=== PATIENT | male | born 1965 | race Caucasian/White ===

== ENCOUNTER 2017-05-20 15:22 | Inpatient (IN) | payer OTHER ==
[~2017-05-20] VITALS: Ht 188 cm; Wt 126.5 kg
--- NOTE | ~2017-05-20 | 2DMMODE ---
[facility] [place] [facility]by [facility] [place] [address] 2 D/M-MODE ECHOCARDIOGRAM Name: AAKASH SCHMITZ Room #: 209-P [facility] IN [facility].#: [id number] Admission: 05/20/17 Attend Phys: Rosendo Lepe MD Discharge: 05/25/17 Date of : 63 Date of Service: 05/21/17 1021 Report #: [id number] THIS REPORT FOR: //name// Study performed: 05/21/2017 10:05:57 EXAM: Comprehensive 2D, Doppler, and color-flow Echocardiogram Patient Location: Bedside Room #: 209 Status: routine BSA: 2.48 HR: 90 bpm BP: 160/86 mmHg Other Information Study Quality: Adequate Indications COPD Diabetes Cardiomyopathy Hypertension/HDD 2D Dimensions RVDd: 32.49 mm LVEF(%): 34.98 (>50%) IVSd: 8.90 (7~11mm) LVOT Diam: 23.28 (18~24mm) LVDd: 48.91 mm PWd: 9.26 (7~11mm) Ascending Ao: 26.11 (22~36mm) LVDs: 40.72 (25~40mm) Aortic Root: 28.80 mm IVC: 17.00 mm Marte's LVEF: 34.98 % Volumes Left Atrial Volume (Systole) Single Plane 4CH: 31.98 mL Single Plane 2CH: 32.94 mL LA ESV Index: 15.00 mL/m2 Aortic Valve AoV Peak Yvon.: 1.46 m/s AO Peak Gr.: 8.49 mmHg LVOT Max P.99 mmHg LVOT Max V: 1.00 m/s DARBY Vmax: 2.92 cm2 Mitral Valve E/A Ratio: 0.7 MV Decel. Time: 232.16 ms MV E Max Yvon.: 0.84 m/s MV A Yvon.: 1.13 m/s MV PHT: 67.[address] [facility] [place] [place] [address] 2 D/M-MODE ECHOCARDIOGRAM Name: AAKASH SCHMITZ Room #: 209-P [facility] IN ..#: [id number] Admission: 05/20/17 Attend Phys: Rosendo Lepe MD Discharge: 05/25/17 Date of : 63 Date of Service: 05/21/17 1021 Report #: [id number] IVRT: 107.27 ms Pulmonary Valve PV Peak Yvon.: 1.09 m/s PV Peak Gr.: 4.71 mmHg Pulmonary Vein P Vein S: 0.36 m/s P Vein A: 0.29 m/s P Vein D: 0.30 m/s P Vein A Dur.: 103.8 msec P Vein S/D Ratio: 1.20 Left Ventricle The left ventricle is normal size. There is normal left ventricular wall borderline incr thickness Left ventricular ejection fraction is moderately decreased. LVEF is 35%. Grade I - abnormal relaxation pattern. Right Ventricle The right ventricle is normal size. The right ventricular systolic function is normal. Atria The left atrium size is normal. The right atrium size is normal. Aortic Valve The aortic valve is normal in structure. No aortic regurgitation is present. There is no aortic valvular stenosis. Mitral Valve The mitral valve is normal in structure. There is no mitral valve regurgitation noted. No evidence of mitral valve stenosis. Tricuspid Valve The tricuspid valve is normal in structure. There is no tricuspid valve regurgitation noted. Pulmonic Valve The pulmonary valve is normal in structure. There is no pulmonic valvular regurgitation. Great Vessels The aortic root is normal in size. IVC is normal in size and collapses >50% with inspiration. Pericardium There is no pericardial effusion. <Conclusion> [facility] [place] [place] [address] [place] [address] 2 D/M-MODE ECHOCARDIOGRAM Name: NAYANDANIELLEOMIAAKASH Shara Room #: 209-P [facility]#: [id number] Admission: 05/20/17 Attend Phys: Rosendo Lepe MD Discharge: 05/25/17 Date of : 63 Date of Service: 05/21/17 1021 Report #: [id number] The left ventricle is normal size. There is normal left ventricular wall borderline incr thickness Left ventricular ejection fraction is moderately decreased. LVEF is 35%. Grade I - abnormal relaxation pattern. The right ventricle is normal size. The left atrium size is normal. There is no aortic valvular stenosis. There is no mitral valve regurgitation noted. There is no tricuspid valve regurgitation noted. The aortic root is normal in size. There is no pericardial effusion. <ELECTRONICALLY SIGNED> By: Ludin Lo MD, FACC 06/04/17 0800 1021 T: Ludin Lo MD, FACC /HY
--- NOTE | ~2017-05-20 | EKG ---
[address] [address] ELECTROCARDIOGRAM REPORT Name: AAKASH SCHMITZ Shara Room #: 209-P ADM IN M.R.#: [id number] Admission: 05/20/17 Attend Phys: Rosendo Lepe MD Discharge: Date of : 63 Report #: [id number] THIS REPORT FOR: //name// [facility] Test Date: 2017-05-21 Test Time: 17:33:42 Pat Name: AAKASH SCHMITZ Department: Room: 209 P Gender: M Marine Cargo Inspector: Doreen SHEEHAN : 1965 Requested By: Rita Godfrey Order Number: [id number] MD: Kermit Thomas Measurements Intervals [place] Rate: 126 P: -8 [place]: 126 QRS: 101 QRSD: 100 T: 34 QT: 317 QTc: 459 Interpretive Statements Sinus tachycardia Left posterior fascicular block Compared to ECG 05/21/2017 08:58:18 Heart rate has increased Electronically Signed On 05-23-2017 14:03:42 HORSE IDENTIFIER by Kermit Thomas [email or web address] <ELECTRONICALLY SIGNED> By: Kermit Thomas MD, [facility] 05/23/17 1403 1733 173 Kermit Thomas MD, [facility] /EPI
--- NOTE | ~2017-05-20 | HC ---
[facility] [place] [address] CONSULTATION Name: AAKASH SCHMITZ Room #: 209-P [facility] IN ..#: [id number] Admission: 05/20/17 Attend Phys: Rosendo Lepe MD Discharge: 05/25/17 Date of : 63 Report #: [id number] THIS REPORT FOR: //name// CC: Rosendo Turner DATE OF SERVICE: 05/21/2017 ATTENDING PHYSICIAN: Jasson Mayo DO REASON FOR CONSULTATION: Chronic kidney disease. HISTORY OF PRESENT ILLNESS: A 52-year-old patient with longstanding poorly controlled diabetes, well known triopathy including renal disease, sees Dr. 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 He has a chronic creatinine runs around 3. He was admitted to the [facility] recently with shortness of breath, felt to be in congestive heart failure and now transferred here. His creatinine is 2.8. PAST MEDICAL HISTORY: Longstanding diabetes mellitus, he has retinopathy, has not had laser treatment; he has peripheral neuropathy, treated with Lyrica and of course the known nephropathy, I am unclear as to what his proteinuria status is. Past history apparently also includes seizure disorder. PAST SURGICAL HISTORY: No previous surgical history. HOME MEDICATIONS: Include insulin, metoprolol 50 mg daily, omeprazole 20 mg b.i.d., Lyrica 50 mg daily, and zonisamide 400 mg daily. SOCIAL HISTORY: Heavy smoker, but he quit 4 years ago. 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 REVIEW OF SYSTEMS: GENERAL: He has been feeling sluggish. EYES: His vision has been somewhat poor, particularly in the dark. ENT: Hearing okay. Swallows okay. Denies mouth ulcers. ENDOCRINE: Positive for the diabetes. RESPIRATORY: Easily short-winded with some orthopnea. CARDIAC: He has had some swelling and weight gain, edema. GASTROINTESTINAL: No nausea, vomiting or diarrhea. GENITOURINARY: Reasonably good urinary stream without dysuria, hematuria, or renal stones. NEUROLOGIC: Apparently has a seizure disorder and does have peripheral neuropathy symptoms. PSYCHIATRIC: No depression or anxiety. [facility] [address] [place] [address] CONSULTATION Name: AAKASH SCHMITZ Room #: 209-P [facility]#: [id number] Admission: 05/20/17 Attend Phys: Rosendo Lepe MD Discharge: 05/25/17 Date of : 63 Report #: [id number] PHYSICAL EXAMINATION: GENERAL: This is a reasonably well-appearing gentleman, seen sitting in his hospital bed. SKIN: Unremarkable. SKELETAL: Somewhat obese. HEENT: Extraocular movements are full. Vision is intact. Hearing is intact. Mucous membranes are moist. Tongue, buccal mucosa benign. NECK: Supple, no JVD, no carotid bruits. CHEST: Shows bilateral crackles at the lung bases. HEART: Regular. ABDOMEN: Soft. EXTREMITIES: Show 1+ peripheral edema. Peripheral pulses are intact. NEUROLOGIC: Shows some numbness in the feet. LABORATORY DATA: Hemoglobin 12.7. Sodium 139, potassium 4.1, chloride 105, bicarbonate 26, BUN 54, creatinine 2.8. ASSESSMENT: 1. Diabetic nephropathy in the setting of triopathy. He has an extremely strong family history of diabetes and renal disease in a brother who of renal failure. He has clearcut diabetic nephropathy. We will check urine proteins for completeness. He is in heart failure. He apparently has ischemic cardiomyopathy, has had prior subclinical myocardial infarction. He has had decreased ejection fraction with segmental wall defects, but apparently has nothing acute on stress test to prompt heart catheterization at this point. He will be treated with appropriate angiotensin receptor merrick and diuretics, long-term combination of torsemide and spironolactone will probably be indicated and we agree with the change to carvedilol. 2. Hypertension. 3. Diabetes mellitus with triopathy. 4. History of seizure disorder. <ELECTRONICALLY SIGNED> By: Ludin Patrick MD 05/26/17 1212 1024 1214 Ludin Patrick MD /nt
--- NOTE | ~2017-05-20 | HC ---
[facility] [place] [address] CONSULTATION Name: AAKASH SCHMITZ Room #: 209-P [facility] IN M.R.#: [id number] Admission: 05/20/17 Attend Phys: Rosendo Lepe MD Discharge: Date of : 63 Report #: [id number] THIS REPORT FOR: //name// CC: Rosendo Warner TYPE OF REPORT: Pulmonary consultation. PRIMARY CARE PHYSICIAN: Carlos Estrella D.O., out of [place], [place]. REFERRING PHYSICIAN: Jasson Mayo D.O. REASON FOR REFERRAL: Dyspnea. HISTORY OF PRESENT ILLNESS: The patient is a 52-year-old white male who was transferred from [facility] due to abnormal stress test. The patient was found to be dyspneic. A pulmonary consultation was requested. The patient states that he has been diagnosed with sleep apnea several years ago. Due to various reasons, he was not given CPAP. His last sleep study was done few years ago. He was told he has severe sleep apnea. He is scheduled again to undergo another sleep study in 06/02/2016. For the past few years, he has noticed increasing dyspnea on exertion. For the past few days, he has noticed that he has been more short of breath. Yesterday, his dyspnea became progressively worse, where he presents to the Emergency Room. He initially presented to [facility]. A stress test was performed, which was said to be abnormal. He was transferred here for further evaluation. He also has known chronic kidney disease and is followed by school age program associate and that is [place], [place]. His baseline creatinine said to be about 3. The patient also notes a progressive weight gain over the last few years. He also notes a recent onset of lower extremity edema. The patient smokes about a pack a day, has smoked about a pack a day for most of his life until about few years ago. He has never been diagnosed with chronic lung disease. PAST MEDICAL HISTORY: Notable diabetes mellitus type 2, hypertension, gastroesophageal reflux disease, chronic kidney disease and history of seizure disorder. PAST SURGICAL HISTORY: Unremarkable. [facility] [address] [place] [address] CONSULTATION Name: AINSLEYAAKASH Room #: 209-P [facility] IN [facility].#: [id number] Admission: 05/20/17 Attend Phys: Rosendo Lepe MD Discharge: Date of : 63 Report #: [id number] ALLERGIES: None noted. HOME MEDICATIONS: Include insulin, metoprolol, omeprazole, Lyrica and zonisamide. FAMILY HISTORY: Remarkable for coronary artery disease and myocardial infarction in the father. SOCIAL HISTORY: He lives alone in [place], [place]. He has a daughter who lives in [place]. He has smoked about a pack a day until about few years ago. He is disabled. He denies any alcohol use. REVIEW OF SYSTEMS: As mentioned above, otherwise 10-point system review negative. PHYSICAL EXAMINATION: GENERAL: He is awake and alert, in no apparent distress. VITAL SIGNS: Temperature is 97.5 degrees Fahrenheit, pulse is 94, respiratory rate is 16, blood pressure 160/86 mmHg and saturation 100%. HEENT: Normocephalic and atraumatic. NECK: Supple, without any lymphadenopathy or thyromegaly. CHEST: Breath sounds are fair clear without any rales or wheezes. CARDIOVASCULAR: Heart sounds are distant. Normal S1 and S2. There are no obvious murmurs or gallop. Pulses are 2+/4+ bilaterally. ABDOMEN: Moderately obese, soft and nontender. No organomegaly or masses felt. GENITOURINARY: Deferred. RECTAL: Deferred. EXTREMITIES: Notable for 2+/4+ bilateral pretibial edema. No cyanosis or clubbing. NEUROLOGICAL: Grossly intact. RADIOLOGICAL DATA: Chest x-ray is clear. Echocardiogram is pending. LABORATORY DATA: Creatinine is 2.8. Sodium 139, potassium 4.1, chloride 105, CO2 of 26 and BUN is 54. WBC 7600, hemoglobin is 12.7 and platelets are normal. IMPRESSION: 1. Progressive dyspnea in this 52-year-old white male. He apparently has a history of severe obstructive sleep apnea but not treated yet. He has lower extremity edema along with chronic kidney disease and apparent cardiomyopathy. The patient likely has eszuu-ag-bpcdxxp diastolic heart failure. Untreated sleep apnea is likely contributing to his symptoms along with heart failure. 2. Obstructive sleep apnea. Sleep study done few years ago, said to be severe. Another sleep study scheduled for June 02 by his primary physician. 3. Tobacco abuse. Recommend baseline pulmonary functions, rule out chronic obstructive lung disease. [address] [address] CONSULTATION Name: AAKASH SCHMITZ Room #: 209-P [facility] IN ..#: [id number] Admission: 05/20/17 Attend Phys: Rosendo Lepe MD Discharge: Date of : 63 Report #: [id number] 4. Cardiomyopathy, based on recent nuclear stress test. Echocardiogram is pending. Cardiology has been consulted. 5. Gehud-zf-bpwugbf systolic and probable diastolic heart failure, currently on diuresis. 6. Chronic kidney disease. Currently followed by renal service. 7. Hypertension. 8. Diabetes mellitus type 2. 9. Obesity. RECOMMENDATION AND DISCUSSION: Suspect untreated severe sleep apnea is likely contributing to much of his symptoms including dyspnea, heart failure, uncontrolled hypertension, etc. We will try BiPAP during his hospitalization. Await sleep study. This will be scheduled in May of this month. The patient will likely need a CPAP or BiPAP therapy. Also, recommended smoke cessation along with baseline pulmonary functions given his symptoms. I will be happy to see the patient in followup, though transportation may be an issue with him living in [place], [place]. Thank you for this consultation. <ELECTRONICALLY SIGNED> By: Emmanuel Dumont MD 05/25/17 1440 1250 9219 Emmanuel Dumont MD /nt
--- NOTE | ~2017-05-20 | EKG ---
[address] [address] ELECTROCARDIOGRAM REPORT Name: AAKASH SCHMITZ Room #: 209-P ADM IN M.R.#: [id number] Admission: 05/20/17 Attend Phys: Rosendo Lepe MD Discharge: Date of : 63 Report #: [id number] THIS REPORT FOR: //name// [facility] Test Date: 2017-05-21 Test Time: 08:58:18 Pat Name: AAKASH SCHMITZ Department: Room: 209 P Gender: M Otolaryngology Surgeon: DEMETRIO : 1965 Requested By: Olivia Najera Order Number: [id number] MD: Kermit Thomas Measurements Intervals [place] Rate: 89 P: 61 HI: 136 QRS: 98 QRSD: 110 T: 29 QT: 369 QTc: 449 Interpretive Statements Sinus rhythm Borderline right axis deviation Occasional atrial premature complexes Compared to ECG 09/30/2007 23:53:30 Atrial premature complexes are now present Electronically Signed On 05-21-2017 9:16:04 SURFACE MOUNT TECHNOLOGY OPERATOR by Kermit Thomas [email or web address] <ELECTRONICALLY SIGNED> By: Kermit Thomas MD, [facility] 05/21/17 0916 7 7 Kermit Thomas MD, [facility] /EPI
[2017-05-20] MEDS ORDERED: PROAIR HFA8.5 GM INH (17:30)
[2017-05-20] MEDS ORDERED: ZYRTEC10 M4 PO (17:31)
[2017-05-20] MEDS ORDERED: NOVOLOG100 UNIT/1 SUBQ (17:33)
[2017-05-20] MEDS ORDERED: LEVEMIR100 UNIT/1 SUBQ (17:34)
[2017-05-20] MEDS ORDERED: VICTOZA 3-0.6 MG/0.1 SUBQ (17:36)
[2017-05-20] MEDS ORDERED: TOPROL XL25 MG PO (17:37)
[2017-05-20] MEDS ORDERED: OMEPRAZOLE 20 M20 M1 PO (17:38)
[2017-05-20] MEDS ORDERED: LYRICA 50 MG50 MG PO (17:38)
[2017-05-20] MEDS ORDERED: DIOVAN HCT 3201 EAC1 PO (17:39)
[2017-05-20] MEDS ORDERED: ZONISAMIDE 100100 M1 PO (17:40)
[2017-05-20 19:04] LABS: HEMATOCRIT 41.6 % (42.0-52.0); HEMOGLOBIN 13.9 gm/dL (14.0-18.0); MCH 29.5 pg (26.0-34.0); MCHC 33.5 g/dL (28.0-37.0); RBC 4.72 mil/uL (4.50-6.00); RDW 13.2 % (10.5-14.5); WBC 8.3 thou/uL (4.0-11.0)
[2017-05-20 19:14] LABS: CALCIUM 9.4 mg/dL (8.5-10.1); CREATININE 2.6 mg/dL (0.7-1.3); POTASSIUM 4.3 mmol/L (3.5-5.1)
[2017-05-20 19:40] VITALS: BP 157/82
[2017-05-21] VITALS: BP 158/88
[2017-05-21 03:46] VITALS: BP 113/59
[2017-05-21 04:01] LABS: CALCIUM 8.8 mg/dL (8.5-10.1); CREATININE 2.8 mg/dL (0.7-1.3); POTASSIUM 4.1 mmol/L (3.5-5.1)
[2017-05-21 04:42] LABS: ABSOLUTE NEUTROPHILS 4.2 thou/uL (1.4-8.2); BASOPHILS 0.5 % (0.0-2.0); EOSINOPHILS 3.3 % (0.0-3.0); HEMATOCRIT 38.3 % (42.0-52.0); HEMOGLOBIN 12.7 gm/dL (14.0-18.0); LYMPHOCYTES 32.5 % (24.0-44.0); MCH 29.3 pg (26.0-34.0); MCHC 33.1 g/dL (28.0-37.0); MCV 88.5 fL (80.0-100.0); MONOCYTES 7.9 % (1.0-8.0); PLATELET COUNT 311 thou/uL (150-400); POLYS 55.8 % (36.0-66.0); RBC 4.32 mil/uL (4.50-6.00); RDW 13.2 % (10.5-14.5); WBC 7.6 thou/uL (4.0-11.0)
[2017-05-21 07:38] VITALS: BP 160/86
[2017-05-21 08:33] LABS: CHOLESTEROL 247 mg/dL (<200); HDL CHOLESTEROL 33 mg/dL (>40); LDL CHOLESTEROL 149 mg/dL (<100); TC:HDL 7.5 Ratio (Not establshd); TRIGLYCERIDE 328 mg/dL (<150); VLDL 66 mg/dL (<40)
[2017-05-21 11:58] VITALS: BP 147/70
[2017-05-21 12:51] LABS: URINE BILIRUBIN NEGATIVE (Negative); URINE BLOOD 1+ (Negative); URINE CLARITY CLEAR; URINE COLOR YELLOW; URINE GLUCOSE-RANDOM* TRACE (Negative); URINE KETONES NEGATIVE (Negative); URINE LEUKOCYTES NEGATIVE (Negative); URINE NITRITE NEGATIVE (Negative); URINE PROTEIN (DIPSTICK) 2+ (Negative); URINE UROBILINOGEN 0.2 E.U./dl (0.2-1.0)
[2017-05-21 13:00] LABS: PROT/CREAT RATIO 3.3; URINE CREATININE-RANDOM* 90.1 mg/dL; URINE PROTEIN-RANDOM* 296.3 mg/dL (<11.9)
[2017-05-21 13:08] LABS: HYALINE CASTS 0-3 Few /LPF (None Seen); SQUAMOUS 0-3 Few /LPF (0-3)
[2017-05-21 13:09] LABS: BACTERIA 1-9 Few /HPF (None Seen); CRYSTALS None Seen /LPF (None Seen); URINE RBC 3-10 Few /HPF (0-2)
[2017-05-21 13:31] LABS: BE(vivo) -1.3 mmol/L (-2 to +3); PCO2 37.4 mmHg (35.0-45.0); PO2 79.3 mmHg (80.0-100.0); pH 7.406 (7.360-7.450); sO2 95.9 % (92.0-98.0)
[2017-05-21 15:47] VITALS: BP 131/92
[2017-05-21 19:28] VITALS: BP 116/79
[2017-05-22 03:49] LABS: CALCIUM 8.7 mg/dL (8.5-10.1); CREATININE 3.1 mg/dL (0.7-1.3); PHOSPHORUS 5.1 mg/dL (2.5-4.9); POTASSIUM 3.7 mmol/L (3.5-5.1)
[2017-05-22 04:14] VITALS: BP 129/83
[2017-05-22 07:56] VITALS: BP 142/84
[2017-05-22 11:23] VITALS: BP 149/92
[2017-05-22 20:15] VITALS: BP 127/76
[2017-05-22 22:25] LABS: URINE BILIRUBIN NEGATIVE (Negative); URINE BLOOD TRACE (Negative); URINE CLARITY CLEAR; URINE COLOR YELLOW; URINE GLUCOSE-RANDOM* NEGATIVE (Negative); URINE KETONES NEGATIVE (Negative); URINE LEUKOCYTES-REFLEX NEGATIVE (Negative); URINE NITRITE-REFLEX NEGATIVE (Negative); URINE PROTEIN (DIPSTICK) 2+ (Negative); URINE UROBILINOGEN 0.2 E.U./dl (0.2-1.0)
[2017-05-22 22:40] LABS: HYALINE CASTS 0-3 Few /LPF (None Seen); SQUAMOUS 0-3 Few /LPF (0-3); URINE RBC 0-2 Rare /HPF (0-2); WBC CLUMPS Rare (None Seen)
[2017-05-22 22:41] LABS: BACTERIA-REFLEX 1-9 Few /HPF (None Seen); CRYSTALS None Seen /LPF (None Seen)
[2017-05-23 04:00] VITALS: BP 102/58
[2017-05-23 04:08] LABS: CREATININE 3.3 mg/dL (0.7-1.3); PHOSPHORUS 5.8 mg/dL (2.5-4.9); POTASSIUM 4.3 mmol/L (3.5-5.1)
[2017-05-23 09:05] VITALS: BP 136/83
[2017-05-23 13:40] VITALS: BP 120/67
[2017-05-23 16:10] VITALS: BP 124/70
[2017-05-23 20:05] VITALS: BP 113/70
[2017-05-24 03:29] LABS: ALBUMIN 2.9 g/dL (3.4-5.0); CALCIUM 8.5 mg/dL (8.5-10.1); CREATININE 3.3 mg/dL (0.7-1.3); MAGNESIUM 2.3 mg/dL (1.8-2.4); POTASSIUM 4.1 mmol/L (3.5-5.1)
[2017-05-24 04:33] VITALS: BP 100/59
[2017-05-24 08:10] VITALS: BP 142/93
[2017-05-24 11:35] VITALS: BP 120/70
[2017-05-24 15:50] VITALS: BP 158/84
[2017-05-24 19:47] VITALS: BP 133/77
[2017-05-25 03:10] VITALS: BP 132/66
[2017-05-25 04:27] LABS: CALCIUM 8.8 mg/dL (8.5-10.1); CREATININE 3.2 mg/dL (0.7-1.3); MAGNESIUM 2.6 mg/dL (1.8-2.4); PHOSPHORUS 4.9 mg/dL (2.5-4.9)
[2017-05-25 07:23] VITALS: BP 152/88
[2017-05-25] MEDS ORDERED: NOVOLOG100 UNIT/1 SUBQ ×2 (09:10)
[2017-05-25] MEDS ORDERED: ATORVASTATIN CA40 MG PO (09:10)
[2017-05-25] MEDS ORDERED: CARVEDILOL12.5 MG PO (09:10)
[2017-05-25] MEDS ORDERED: LASIX 40 MG TAB40 M1 PO (09:10)
[2017-05-25] MEDS ORDERED: COZAAR 50 MG TA50 M1 PO (09:10)
[2017-05-25 11:30] VITALS: BP 138/74
[2017-05-25 15:42] VITALS: BP 138/74
== END 2017-05-25 16:05 | disposition home or self-care (01) | DRG 291 ==
LOC: 2N 15:22 → ENTRNSPT 05-25 16:03 → 2N 05-25 16:05
PROVIDERS: Hospitalist; Internal Medicine; Internal Medicine Nephrology; Internal Medicine Pulmonary Disease; Nurse Practitioner Adult Health
PROC: 5A09457 Assistance with Respiratory Ventilation, 24-96 Consecutive Hours, Continuous Positive Airway Pressure (ICD-10-PCS; principal; 2017-05-22)
DX: I13.0 Hypertensive heart and chronic kidney disease with heart failure and stage 1 through stage 4 chronic kidney disease, or unspecified chronic kidney disease (principal); I50.43 Acute on chronic combined systolic (congestive) and diastolic (congestive) heart failure; N17.9 Acute kidney failure, unspecified; N39.0 Urinary tract infection, site not specified; I42.9 Cardiomyopathy, unspecified; E11.42 Type 2 diabetes mellitus with diabetic polyneuropathy; E78.00 Pure hypercholesterolemia, unspecified; E66.01 Morbid (severe) obesity due to excess calories; E87.6 Hypokalemia; E11.319 Type 2 diabetes mellitus with unspecified diabetic retinopathy without macular edema; K21.9 Gastro-esophageal reflux disease without esophagitis; N18.9 Chronic kidney disease, unspecified; G47.33 Obstructive sleep apnea (adult) (pediatric); J45.909 Unspecified asthma, uncomplicated; E11.22 Type 2 diabetes mellitus with diabetic chronic kidney disease; G40.909 Epilepsy, unspecified, not intractable, without status epilepticus; Z68.35 Body mass index [BMI] 35.0-35.9, adult; Z87.891 Personal history of nicotine dependence; Z79.4 Long term (current) use of insulin; Z79.899 Other long term (current) drug therapy; Z88.8 Allergy status to other drugs, medicaments and biological substances; Z82.49 Family history of ischemic heart disease and other diseases of the circulatory system
CPT/HCPCS: 10081

== ENCOUNTER 2017-05-27 02:02 | Inpatient (IN) | payer OTHER ==
[~2017-05-27] VITALS: Ht 188 cm; Wt 119.7 kg
--- NOTE | ~2017-05-27 | EKG ---
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
--- NOTE | ~2017-05-27 | CATHLAB ---
[facility] [address] [place] [address] INVASIVE PROCEDURE REPORT Name: AAKASH SCHMITZ Room #: 218-P DIS IN [facility]#: [id number] Admission: 05/27/17 Attend Phys: Rikki Trinh MD Discharge: 05/29/17 Date of : 63 Date of Service: 06/03/17 0926 Report #: [id number] THIS REPORT FOR: //name// APPROVED REPORT Patient Details Patient Status: In-Patient Room #: The patient is a 52 year-old male Event Personnel Junaid Bruno Lip Reading Teacher, Alfred Mayfield RN, Catherine Patel Aloi, Christine Monitor Procedures Performed Art Access - R femoral artery* Left Heart Cath w/or w/o Coronaries [id number] [facility] Hemostasis with Manual pressure 81999 Initial Mod Sed Same Phys/QHP Gr5y 821057, supervision of conscious sedation Indication Positive stress test, Chest pain Procedure Narrative The patient was brought urgently to the Cardiac Catheterization Laboratory and was prepped and draped in a sterile manner. The Right Groin^ was infiltrated with 1% Lidocaine subcutaneous anesthesia. A PINNACLE 4FR Sheath #[id number] sheath was inserted into the RFA^. Coronary angiography was performed using coronary diagnostic catheters. The right coronary system was accessed and visualized with a JR 4 catheter. The left coronary system was accessed and visualized with a JL 4 catheter. The left ventricle was accessed and visualized with a Pigtail catheter. Left ventricular/Aortic Valve gradient assessed via catheter pullback. Hemostasis was obtained with manual pressure following sheath removal without any complications. The patient tolerated the procedure well and there were no complications associated with the procedure. There was no hematoma. Intraoperative Conscious Sedation Sedation start time: 14:49 Case end Time: 14:59 Versed 2.0 mg Fluoro Time: 3.30 minutes Dose: DAP 4706.40 cGycm2 681 mGy Contrast Type and Amount: Omnipaque 35 ml [facility] [address] [place] [address] INVASIVE PROCEDURE REPORT Name: AAKASH SCHMITZ Shara Room #: 218-P [facility]#: [id number] Admission: 05/27/17 Attend Phys: Rikki Trinh MD Discharge: 05/29/17 Date of : 63 Date of Service: 06/03/17 0926 Report #: [id number] Coronary Angiography The patient's coronary anatomy is right dominant. Diagnostic Cath Left Main Vessel is of normal origin and moderate caliber trifurcates left anterior descending ramus intermedius and left circumflex. No significant obstructive lesions noted LAD Moderate caliber type III vessel which gives rise to septal and diagonal branches as it courses in the anterior interventricular sulcus. In its mid course there is a suggestion of a mild myocardial bridge otherwise no significant flow-limiting lesions noted Circumflex Small caliber nondominant vessel which bifurcates into a small lateral wall marginal of less than 1 mm in diameter which has moderate luminal irregularities. Right Coronary Moderate caliber vessel of normal origin proceeds in the AV groove posteriorly giving rise to a small marginal branch. It then continues posteriorly to the posterior descending artery and distal right coronary circulation free of high-grade disease although there is mild luminal irregularities noted R PDA Originates from the right coronary artery at the crux of the heart without significant high-grade lesions present Ramus Moderate to large caliber vessel coursing along the lateral aspect of the heart towards the apex. There is no significant obstructive flow-limiting lesions identified Left Ventriculography Left Ventriculography was not performed. Hemodynamics The aortic pressure is 154/87 mmHg with a mean of 117 mmHg. The left ventricular pressure is 146/17 mmHg with a mean of mmHg. The left ventricular end diastolic pressure is 26 mmHg. Conclusion 1. 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 Normal hemodynamics [facility] [address] [place] [address] INVASIVE PROCEDURE REPORT Name: AAKASH SCHMITZ Room #: 218-P [facility]..#: [id number] Admission: 05/27/17 Attend Phys: Rikki Trinh MD Discharge: 05/29/17 Date of : 63 Date of Service: 06/03/17 0926 Report #: [id number] Recommendations Cardiac Risk Reduction Program <ELECTRONICALLY SIGNED> By: Junaid Bruno MD 06/03/17925 5 5 Junaid Bruno MD /INF
--- NOTE | ~2017-05-27 | EKG ---
[address] [address] ELECTROCARDIOGRAM REPORT Name: AAKASH SCHMITZ Room #: 218-P ADM IN M.R.#: [id number] Admission: 05/27/17 Attend Phys: Rikki Trinh MD Discharge: Date of : 63 Report #: [id number] THIS REPORT FOR: //name// [facility] Test Date: 2017-05-27 Test Time: 09:48:55 Pat Name: AAKASH SCHMITZ Department: Room: 218 P Gender: M Refrigeration Person: DARLENE : 1965 Requested By: Rita Godfrey Order Number: [id number] MD: Ignacio Cohen Measurements Intervals [place] Rate: 87 P: 71 WV: 145 QRS: 96 QRSD: 117 T: 31 QT: 381 QTc: 459 Interpretive Statements Sinus rhythm Nonspecific intraventricular conduction delay Baseline wander in lead(s) V1 Compared to ECG 05/21/2017 17:33:42 Intraventricular conduction delay now present Sinus tachycardia no longer present Left posterior fascicular block no longer present Electronically Signed On 05-27-2017 9:58:30 CAMPUS INTERVIEWS INTERN by Ignacio Cohen [email or web address] <ELECTRONICALLY SIGNED> By: Ignacio Cohen MD 05/27/1758 7 Ignacio Cohen MD /EPI
[~2017-05-27 02:02] MED LIST: ATORVASTATIN CA40 MG PO; CARVEDILOL12.5 MG PO; COZAAR 50 MG TA50 M1 PO; DIOVAN HCT 3201 EAC1 PO; LASIX 40 MG TAB40 M1 PO; LEVEMIR100 UNIT/1 SUBQ; LYRICA 50 MG50 MG PO; NOVOLOG100 UNIT/1 SUBQ; OMEPRAZOLE 20 M20 M1 PO; PROAIR HFA8.5 GM INH; TOPROL XL25 MG PO; VICTOZA 3-0.6 MG/0.1 SUBQ; ZONISAMIDE 100100 M1 PO; ZYRTEC10 M4 PO
[2017-05-27 05:10] VITALS: BP 134/68
[2017-05-27 07:10] VITALS: BP 130/70
[2017-05-27 08:12] LABS: HEMATOCRIT 35.6 % (42.0-52.0); HEMOGLOBIN 11.9 gm/dL (14.0-18.0); MCH 29.1 pg (26.0-34.0); MCHC 33.5 g/dL (28.0-37.0); MCV 86.9 fL (80.0-100.0); RBC 4.1 mil/uL (4.50-6.00); RDW 13.1 % (10.5-14.5); WBC 7.5 thou/uL (4.0-11.0)
[2017-05-27 08:26] LABS: ANION GAP 9 mmol/L (7-16); BUN 46 mg/dL (7-18); CALCIUM 8.8 mg/dL (8.5-10.1); CHLORIDE 108 mmol/L (98-107); CO2 23 mmol/L (21-32); CREATININE 2.4 mg/dL (0.7-1.3); GLUCOSE 69 mg/dL (74-106); POTASSIUM 4.1 mmol/L (3.5-5.1); SODIUM 140 mmol/L (136-145); TROPONIN-I < 0.04 ng/mL (<0.06)
[2017-05-27 11:45] VITALS: BP 165/69
[2017-05-27 15:15] VITALS: BP 137/49
[2017-05-27 20:33] VITALS: BP 135/63
[2017-05-27 23:50] VITALS: BP 132/72
[2017-05-28] VITALS (16 sets, daily range): BP systolic 121–170; BP diastolic 50–91
[2017-05-28 04:01] LABS: HEMATOCRIT 35.1 % (42.0-52.0); HEMOGLOBIN 11.6 gm/dL (14.0-18.0); MCH 29.4 pg (26.0-34.0); MCV 89.1 fL (80.0-100.0); RBC 3.94 mil/uL (4.50-6.00); RDW 12.9 % (10.5-14.5); WBC 6.5 thou/uL (4.0-11.0)
[2017-05-28 04:35] LABS: ALBUMIN 2.8 g/dL (3.4-5.0); CALCIUM 8.5 mg/dL (8.5-10.1); CREATININE 2.4 mg/dL (0.7-1.3); PHOSPHORUS 3.3 mg/dL (2.5-4.9); POTASSIUM 4.1 mmol/L (3.5-5.1)
[2017-05-29 03:55] VITALS: BP 122/53
[2017-05-29 05:03] LABS: ALBUMIN 2.8 g/dL (3.4-5.0); CALCIUM 9.2 mg/dL (8.5-10.1); CREATININE 2.5 mg/dL (0.7-1.3); PHOSPHORUS 4.1 mg/dL (2.5-4.9); POTASSIUM 4.1 mmol/L (3.5-5.1)
[2017-05-29 08:15] VITALS: BP 145/57
[2017-05-29] MEDS ORDERED: ATIVAN1 MG PO (08:27)
[2017-05-29] MEDS ORDERED: DEMADEX20 MG PO (09:53)
[2017-05-29 12:15] VITALS: BP 118/72
[2017-05-29 12:20] VITALS: BP 175/88
[2017-05-29 13:26] VITALS: BP 175/88
== END 2017-05-29 14:59 | disposition home or self-care (01) | DRG 286 ==
LOC: 2N 02:02
PROVIDERS: Hospitalist; Nurse Practitioner Family
PROC: 5A09357 Assistance with Respiratory Ventilation, Less than 24 Consecutive Hours, Continuous Positive Airway Pressure (ICD-10-PCS; 2017-05-27)
PROC: B2111ZZ Fluoroscopy of Multiple Coronary Arteries using Low Osmolar Contrast (ICD-10-PCS; principal; 2017-05-28)
PROC: 4A023N7 Measurement of Cardiac Sampling and Pressure, Left Heart, Percutaneous Approach (ICD-10-PCS; principal; 2017-05-28)
DX: I25.10 Atherosclerotic heart disease of native coronary artery without angina pectoris (principal); E43 Unspecified severe protein-calorie malnutrition; I50.22 Chronic systolic (congestive) heart failure; I13.0 Hypertensive heart and chronic kidney disease with heart failure and stage 1 through stage 4 chronic kidney disease, or unspecified chronic kidney disease; N18.4 Chronic kidney disease, stage 4 (severe); I42.9 Cardiomyopathy, unspecified; E78.5 Hyperlipidemia, unspecified; E66.9 Obesity, unspecified; E11.22 Type 2 diabetes mellitus with diabetic chronic kidney disease; G40.909 Epilepsy, unspecified, not intractable, without status epilepticus; K21.9 Gastro-esophageal reflux disease without esophagitis; E11.40 Type 2 diabetes mellitus with diabetic neuropathy, unspecified; J45.909 Unspecified asthma, uncomplicated; G47.33 Obstructive sleep apnea (adult) (pediatric); F41.9 Anxiety disorder, unspecified; Z88.8 Allergy status to other drugs, medicaments and biological substances; Z79.899 Other long term (current) drug therapy; Z68.33 Body mass index [BMI] 33.0-33.9, adult; Z82.49 Family history of ischemic heart disease and other diseases of the circulatory system
CPT/HCPCS: 10081

== ENCOUNTER → 2017-06-11 | Outpatient (CLI) | payer OTHER ==
[~2017-06-11] MED LIST changes: +ATIVAN1 MG PO; +DEMADEX20 MG PO
== END ==
LOC: SLEEPLAB 08:12
DX: G47.33 Obstructive sleep apnea (adult) (pediatric) (principal)

== ENCOUNTER → 2017-10-12 | Outpatient (CLI) | payer OTHER | LOC: SLEEPLAB 10:49 | DX: G47.33 Obstructive sleep apnea (adult) (pediatric) (principal) ==